=== PATIENT | male | born 1965 | race Caucasian/White ===

== ENCOUNTER 2018-09-29 08:00 | Outpatient (RCR) | payer BC | END 2018-09-29 08:30 | disposition home or self-care (01) | LOC: PT 08:00 | DX: M48.02 Spinal stenosis, cervical region (principal); M54.12 Radiculopathy, cervical region; M50.20 Other cervical disc displacement, unspecified cervical region ==

== ENCOUNTER 2019-08-04 11:00 | Outpatient (RCR) | payer BC | END 2019-08-04 11:30 | disposition still patient (30) | LOC: PT 11:00 | DX: M48.02 Spinal stenosis, cervical region (principal); M50.10 Cervical disc disorder with radiculopathy, unspecified cervical region; G58.8 Other specified mononeuropathies ==